=== PATIENT | female | born 1960 | race Caucasian/White ===

== ENCOUNTER 2025-04-30 07:54 | Outpatient (RCR) | payer BC, SELFPAY | END 2025-06-09 10:27 | disposition home or self-care (01) | LOC: PT 07:54 | PROVIDERS: PCP Orthopaedic Surgery; Visit Provider Family Medicine | DX: M17.11 Unilateral primary osteoarthritis, right knee (principal); M25.561 Pain in right knee | CPT/HCPCS: 97110; 97112; 97161; 97530 ==

== ENCOUNTER 2025-06-21 07:56 | Outpatient (OUT) | payer BC, SELFPAY ==
--- NOTE | 2025-06-21 08:05 | MM_ITS ---
Patient Name: NEGRO RICHEY MR#: [id number] : 1960 Exam Date: 06/21/2025 Ordering Doctor: DR CLARA COLUNGA . RADIOLOGY REPORT PROCEDURE: MM TOMOSYNTHESIS SCREENING BI COMPARISON: MG MAMM SCREEN JAMEL W CAD, 04/10/2019. MG MAMM SCREEN JAMEL W CAD, 04/08/2018. MG MAMM SCREEN JAMEL W CAD, 04/07/2017. MG MAMM JAMEL SCRN W CAD DIG, 02/14/2016. INDICATIONS: Screening Calculator Name NCI Breast Cancer Risk Assessment Tool 5 Year Breast Cancer Risk 1.30% Lifetime Breast Cancer Risk 5.00% Personal Breast Cancer No Personal Ovarian Cancer No Treatments None Family Cancers None LOCATION: [facility] BREAST COMPOSITION: There are scattered areas of fibroglandular density. FINDINGS: DIAGNOSTIC CATEGORY 1--NEGATIVE. RIGHT BREAST: No significant suspicious finding. LEFT BREAST: No significant suspicious finding. RECOMMENDATIONS: ROUTINE MAMMOGRAM AND CLINICAL EVALUATION IN 12 MONTHS. Dictated by: Seamus Kamara DO on 06/21/2025 at 15:22 Approved by: Seamus Kamara DO on 06/21/2025 at 15:27
== END 2025-06-21 07:57 | disposition home or self-care (01) ==
LOC: US 07:56
PROVIDERS: PCP Orthopaedic Surgery; Visit Provider Family Medicine
DX: Z00.00 Encounter for general adult medical examination without abnormal findings (principal); R60.9 Edema, unspecified; Z12.31 Encounter for screening mammogram for malignant neoplasm of breast
CPT/HCPCS: 77063; 77067; 93970

== ENCOUNTER 2025-06-26 07:58 | Outpatient (OUT) | payer BC, SELFPAY ==
--- OUTSIDE RECORDS SUMMARY | 2025-05-14 05:30 | XMS_ITS ---
Author Organization [facility] Address [address] [place] [address] Care Team Providers Care Product Advisor Name Role Phone TyroneOmid fung Primary Care Provider Abiel Lubin Unavailable [phone] Marilee Escamilla Unavailable [phone] REASON FOR VISIT 1st Post-Op Right TKA 04/26/25, S/p right TKA 04/26/2025 Medications Medication SIG (Take, Route, Frequency, Duration) Notes Start Date End Date Status furosemide Active aspirin Active QUEtiapine Active irbesartan Active amLODIPine Active metoprolol Active citalopram Active cloNIDine Active indomethacin Active Problems Problem Type SNOMED Code ICD Code Onset Dates Problem Status W/U Status Risk Notes Problem [id number] Aftercare following joint replacement surgery (Z47.1) Active confirmed Problem [id number] Presence of right artificial knee joint (Z96.651) Active confirmed Vital Signs Height 62 in 05/14/2025 Weight 205 lbs 05/14/2025 BMI 37.49 05/14/2025 Encounters Encounter Location Date Provider Diagnosis [facility] [address] [place] [address] 05/14/2025 Marileeleila Escamilla Aftercare following joint replacement surgery Z47.1 and Presence of right artificial knee joint Z96.651 Assessments Encounter Date Diagnosis (ICD Code) Assessment Notes Treatment Notes Treatment Clinical Notes Section Notes 05/14/2025 Aftercare following joint replacement surgery (ICD-10 - Z47.1) S/p right TKA 04/26/2025 05/14/2025 Presence of right artificial knee joint (ICD-10 - Z96.651) S/p right TKA 04/26/2025 05/14/2025 Other Discussed treatment options with patient. At this time patient is doing very well. Patient was encouraged that she has in a very good place with her mobility and range of motion. Patient was encouraged to continue working with physical therapy and doing home exercises for continued knee stretching and strengthening. They continue activity modification, rest, ice, elevation, and use of anti-inflammator ies as needed for pain control. Continue to progress activity as tolerated. Patient does not need any refills of pain medications. Continue Tylenol as needed for pain. Continue cane and walker as needed to assist with ambulation. Patient was in agreement with treatment plan. All questions and concerns were addressed at the time of the appointment. Will plan to see patient back in 6 weeks for repeat clinical and radiographic evaluation. Patient encouraged by the office any questions or concerns in the meantime. S/p right TKA 04/26/2025 Plan Of Treatment Treatment Notes Assessment Notes Other Discussed treatment options with patient. At this time patient is doing very well. Patient was encouraged that she has in a very good place with her mobility and range of motion. Patient was encouraged to continue working with physical therapy and doing home exercises for continued knee stretching and strengthening. They continue activity modification, rest, ice, elevation, and use of anti-inflammatories as needed for pain control. Continue to progress activity as tolerated. Patient does not need any refills of pain medications. Continue Tylenol as needed for pain. Continue cane and walker as needed to assist with ambulation. Patient was in agreement with treatment plan. All questions and concerns were addressed at the time of the appointment. Will plan to see patient back in 6 weeks for repeat clinical and radiographic evaluation. Patient encouraged by the office any questions or concerns in the meantime. Pending Test Test Name Order Date RSS: KNEE POST OP RIGHT 3V AP,[place], [place] [id number] 05/14/2025 Next Appt Details Follow Up: 6 Weeks, Reason: Provider Name:Abiel eBard, 10/29/2025 08:50:00 AM, [address] , [place] [address], [place], [address], Progress Notes * NEGRO RICHEY ADOB: [birth year] (65 yo F)Acc No.[id number]:05/14/2025 Progress Notes Patient: NEGRO RITTER Provider: Emelina Escamilla PA-C :1960 A ge:65 Y S ex:Female Date:05/14/2025 Address:[address] [place], [place] [id number] Pcp:Omid Mendez Subjective: * Chief Complaints: * 1 . 1st Post-Op Right TKA 04/26/25. 2. S/p right TKA 04/26/2025. * HPI: G eneral Info per Patient Report: Patient is a 65-year-old female who presents to the office for 2-week follow-up s/p right total knee arthroplasty completed on 04/26/2025. Patient states overall she is doing well. Pain is improving. Does note continued stiffness, but notes pain is overall very tolerable. Does note continued swelling in the knee and down her lower leg and at the foot by the end of the knee. No new falls or injuries. No numbness or tingling in her toes and feet. No redness, drainage, sores, dehiscence of incision site. Pain has woken her rarely but not regularly. Denies any fever or chills. Has been taking Tylenol with moderate relief. She is physical therapy is going great. Has been doing home exercises regularly. Ambulating with a walker most the time but has started to transition to a cane with physical therapy. * ROS: C onstitutional: Denies C hills. D enies F ever. * Medical History: * Surgical History: R ight total knee replacement 04/26/2025. * Medications: T aking cloNIDine , Taking citalopram , Taking indomethacin , Taking metoprolol , Taking QUEtiapine , Taking aspirin , Taking furosemide , Taking amLODIPine , Taking irbesartan , Medication List reviewed and reconciled with the patient Objective: * Vitals: H t: 62 in, Wt: 205 lbs, BMI:37.49. * Examination: G eneral examination: G eneral examination: Patient is a pleasant well-appearing 65-year-old female sitting comfortably in a chair. She is awake, alert and oriented x 3, and in no acute distress. Answering questions appropriately. Normal mood and affect. x-ray imaging studies:Dictated by Dr. Beard 3 views right knee obtained and reviewed. Radiographs demonstrate well aligned well-fixed right total knee arthroplasty. No evidence of hardware failure or loosening. No acute fracture or dislocation. Patella tracking centrally. X -ray Imaging Studies: S ee dictation by RSS. R ight Lower Extremity: W ell-healing midline incision without evidence of erythema, drainage, sores, dehiscence. Skin otherwise intact without evidence of erythema or ecchymosis. Moderate edema to knee. Mild edema down lower leg and into foot and ankle. Calf remain soft and compressible. No calf tenderness. No palpable cords. Negative Kosta. Mild diffuse tenderness through knee. Mild effusion. Knee range of motion 0 to 110 degrees. Mild discomfort with end range of motion flexion. He stable to varus/valgus stress. 5 out of 5 quad strength. Motor intact quad, hamstring, TA, GSC, EHL, FHL. Sensation intact light touch SPN, DPN, sural, saphenous, tibial nerve distribution. 2+ DP pulse. Toes warm and well-perfused. No calf pain. Negative Kosta. No hip or groin pain with hip range of motion. Assessment: * Assessment: 1. A ftercare following joint replacement surgery - Z47.1 (Primary) 2 . P resence of right artificial knee joint - Z96.651 S/p right TKA 04/26/2025. Plan: * Treatment: 2. P resence of right artificial knee joint I maging: RSS: KNEE POST OP RIGHT 3V AP,[place], [place] [id number] 3. O thers Notes: Discussed treatment options with patient. At this time patient is doing very well. Patient was encouraged that she has in a very good place with her mobility and range of motion. Patient was encouraged to continue working with physical therapy and doing home exercises for continued knee stretching and strengthening. They continue activity modification, rest, ice, elevation, and use of anti-inflammatories as needed for pain control. Continue to progress activity as tolerated. Patient does not need any refills of pain medications. Continue Tylenol as needed for pain. Continue cane and walker as needed to assist with ambulation. Patient was in agreement with treatment plan. All questions and concerns were addressed at the time of the appointment. Will plan to see patient back in 6 weeks for repeat clinical and radiographic evaluation. Patient encouraged by the office any questions or concerns in the meantime. * Preventive Medicine: MIPS Measures: C MS139 Fall Risk S creening: T wo or more falls without injury in the past year. # 155 - Falls Plan of Care P nataly of Care: D ocumented, T ype of fall plan of care: B alance, strength and gait training or instruction provided, Referral to exercise program for balance, strength or gait training, Referral to physical therapy\r\n. Well Visit: P reventive Screenings D EXA performed 0 02/02/2015. * Follow Up: 6 Weeks Forms: * Images: * Electronic signature of Lisasavana Escamilla PA-C on 06/26/2025 at 08:00 AM EDT Sign off status: Pending * Provider: Emelina Escamilla PA-C Date: 0 05/14/2025 Generated for Cyndi broussard/Nickolas/Jaraditting on: 0 06/26/2025 08:00 AM EDT History and Physical Notes * HPI (History of Present Illness) Category Sub-Category Detail Notes Category Not es General Info per Patient Report Patient is a 65-year -old female who presents to the office for 2-week follow-up s/p right total knee arthroplasty completed on 04/26/2025. Patient states overall she is doing well. Pain is improving. Does note continued stiffness, but notes pain is overall very tolerable. Does note continued swelling in the knee and down her lower leg and at the foot by the end of the knee. No new falls or injuries. No numbness or tingling in her toes and feet. No redness, drainage, sores, dehiscence of incision site. Pain has woken her rarely but not regularly. Denies any fever or chills. Has been taking Tylenol with moderate relief. She is physical therapy is going great. Has been doing home exercises regularly. Ambulating with a walker most the time but has started to transition to a cane with physical therapy. Examination Category Sub-Category Detail Notes Category Not es General examination General examination: Patient is a pleasant well-appearing 65-year-old female sitting comfortably in a chair. She is awake, alert and oriented x 3, and in no acute distress. Answering questions appropriately. Normal mood and affect. x-ray imaging studies:Dictated by Dr. Beard 3 views right knee obtained and reviewed. Radiographs demonstrate well aligned well-fixed right total knee arthroplasty. No evidence of hardware failure or loosening. No acute fracture or dislocation. Patella tracking centrally. X-ray Imaging Studies See di ctation by RSS Right Lower Extremity Well-h ealing midline incision without evidence of erythema, drainage, sores, dehiscence. Skin otherwise intact without evidence of erythema or ecchymosis. Moderate edema to knee. Mild edema down lower leg and into foot and ankle. Calf remain soft and compressible. No calf tenderness. No palpable cords. Negative Kosta. Mild diffuse tenderness through knee. Mild effusion. Knee range of motion 0 to 110 degrees. Mild discomfort with end range of motion flexion. He stable to varus/valgus stress. 5 out of 5 quad strength. Motor intact quad, hamstring, TA, GSC, EHL, FHL. Sensation intact light touch SPN, DPN, sural, saphenous, tibial nerve distribution. 2+ DP pulse. Toes warm and well-perfused. No calf pain. Negative Kosta. No hip or groin pain with hip range of motion.
--- OUTSIDE RECORDS SUMMARY | 2025-06-15 05:45 | XMS_ITS ---
Author Organization [facility] [place] Address [address] [place] [address] Care Team Providers Care Tour Consultant Name Role Phone Ariel Mendez Primary Care Provider Allergies Allergen (clinical drug ingredient) Drug/Non Drug Allergy documented on EMR Reaction Allergy Type Onset Date Status amoxicillin / clavulanate Augmentin vomiting/ diarrhea Drug Allergy Active REASON FOR VISIT Presents to office alone or c/o swollen ankles for years Medications Medication SIG (Take, Route, Frequency, Duration) Notes Start Date End Date Status cloNIDine HCl 0.2 MG TAKE 1 TABLET BY MO UTH TWICE A DAY; Duration: 90 Active Citalopram Hydrobromide 20 MG TAKE 1 TABLET BY MOUTH EVERY DAY FOR 30 DAYS; Duration: 90 Active Furosemide 20 MG TAKE 1 TABLET BY FARZAD TH EVERY DAY FOR 30 DAYS; Duration: 90 days Active Multivitamin - 1 tablet Orally Once a day Active Vitamin C 500 MG as directed Orally Active amLODIPine Besylate 10 MG TAKE 1 TABLET BY MOUTH EVERY DAY; Duration: 90 Active Aspirin 81 81 MG 1 tablet Orally Once a day Active QUEtiapine Fumarate 25 MG TAKE 1 TABLET BY MOUTH EVERY DAY AT NIGHT; Duration: 90 days Active Irbesartan 300 MG TAKE 1 TABLET BY FARZAD TH EVERY DAY; Duration: 90 Active Indomethacin 50 MG 1 capsule with food or milk Orally tid; Duration: 30 days 02/22/2025 Active Metoprolol Tartrate 25 MG 1 tablet with food Orally Twice a day; Duration: 30 days take along with the 50mg 01/17/2025 Active Metoprolol Tartrate 50 MG TAKE 1 TABLET BY MOUTH TWICE A DAY WITH FOOD; Duration: 90 days Active Social History Tobacco Use: Social History Observation Description Date Details (start date - stop date) Never Smoker NA - NA Tobacco Use/Smoking Question Answer Notes Patient is a nonsmoker AUDIT-C (Standard) Question Answer Notes Did you have a drink containing alcohol in the p ast year? No Points 0 Interpretation Negative Problems Problem Type SNOMED Code ICD Code Onset Dates Problem Status W/U Status Risk Notes Problem Edema ([id number]) Edema (R60.9) Active confirmed Vital Signs Weight 204.0 lbs 06/15/2025 Height 66 in 06/15/2025 Blood pressure systolic 126 mm Hg 06/15/20 25 Blood pressure diastolic 72 mm Hg 025 BMI 32.92 kg/m2 06/15/2025 Encounters Encounter Location Date Provider Diagnosis [facility] [address] [place] [address] 06/15/2025 Ariel Hoy Edema R60.9 and Well adult Z00.00 Assessments Encounter Date Diagnosis (ICD Code) Assessment Notes Treatment Notes Treatment Clinical Notes Section Notes 06/15/2025 Edema (ICD-10 - R60.9) 06/15/2025 Well adult (ICD-10 - Z00.00) Plan Of Treatment Pending Test Test Name Order Date VC VENOUS REFLUX JAMEL LMT 06/15/2025 MM screening mammo BI 06/15/2025 Progress Notes * Sharla RICHEY ADOB: [birth year] (65 yo F)Acc No.[id number]:06/15/2025 Progress Note Patient: Sharla RITTER Provider: Kathy Mendez ([facility])MD :1960 A ge:65 Y S ex:Female Date:06/15/2025 Address:[address] [place], [place] [id number] Check In:09:37 AM ESTCheck O ut:10:16 AM EST Subjective: * Chief Complaints: * P resents to office alone or c/o swollen ankles for years * HPI: G eneral: Swelling in legs =- usuaqly much better by am - no GAN no orthopnea -. * ROS: E ENT: hearing changes d enies. v isual changes d enies.?non-healing mouth sores d enies. s wollen glands or neck lumps d enies. h oarseness d enies. s ore throat d enies. d ifficulty swallowing d enies. n ose bleeds d enies. n aye congestion d enies. e ar ache d enies. e ar discharge?denies. r inging in ears d enies. l ight sensitivity d enies. e ye pain d enies. b lurring d enies. e ye irritation d enies. d ouble vision d enies.?vision loss d enies. G eneral/Constitutional: Sweats: D enies. F atigue d enies. S leep problems d enies. A norexia d enies. M alaise d enies. W eight loss d enies.?Fatigue or Weakness d enies. F ever or Chills d enies. C ardiovascular: Shortness of Breath w/lying flat d enies. L ightheadedness/dizziness d enies. C hest tightness/ heavy pressure d enies. S welling of legs, ankles, or feet d enies. W aking up with shortness of breath d enies. C hest pain denies. P alpitations d enies. W eight gain d enies. R espiratory: Chronic or frequent cough d enies. C oughing up blood?denies. D ifficulty breathing d enies. P roductive cough d enies. S noring?denies. S hortness of breath that awakens from sleep (PND) d enies. C hest pain d enies. S putum production d enies. W heezing d enies. M usculoskeletal: Joint pain d enies. J oint Fluid d enies. B ack pain d enies. K nee pain d enies. N sudheer pain d enies. J oint Stiffness d enies. M uscle cramps d enies. W eakness of muscles d enies. A rthritis d enies. M uscle aches d enies. P ain in shoulder(s) d enies. S wollen joints d enies. * Active Problem List G47.00 Insomnia Modified On:04/08/2023 Status:confirmed L30.9 Eczema Modified On:04/08/2023 Status:confirmed M17.9 Knee osteoarthritis Modified On:01/06/2024U Status:confirmed J30.2 Seasonal allergic rh initis Modified On:04/08/2023 Status:confirmed I10 Hypertension Modified On:04/08/2023U Status:confirmed F41.9 Anxiety Modified On:04/08/2023U Status:confirmed F32.A Depression Modified On:04/08/2023U Status:confirmed M13.861 Other specified arth ritis, right knee Modified On:01/13/2023 Status:confirmed M66.9 Tendon rupture, nont raumatic Modified On:09/19/2024 Status:confirmed M23.90 Internal derangement of knee Modified On:03/20/2025 Status:confirmed R60.9 Edema Modified On:06/15/2025 Status:confirmed * Medical History: * Surgical History: H ysterectomy S/P total knee arthroplasty, right 04/26/2025 * Hospitalization/Major Diagno stic Procedure: * Family History: F ather: , diagnosed with Unspecified heart disease. M other: , diagnosed with Unspecified heart disease. * Social History: T obacco Use: T obacco Use/Smoking P atient is a n onsmoker D rug/Alcohol: A ANDREW-C (Standard) D id you have a drink containing alcohol in the past year? N o P oints 0 I nterpretation N egative * Medications: T akingamLODIPine Besylate 10 MG Tablet TAKE 1 TABLET BY MOUTH EVERY DAY Aspirin 81(Aspirin) 81 MG Tablet Delayed Release 1 tablet Orally Once a day Citalopram Hydrobromide 20 MG Tablet TAKE 1 TABLET BY MOUTH EVERY DAY FOR 30 DAYS cloNIDine HCl 0.2 MG Tablet TAKE 1 TABLET BY MOUTH TWICE A DAY Furosemide 20 MG Tablet TAKE 1 TABLET BY MOUTH EVERY DAY FOR 30 DAYS Indomethacin 50 MG Capsule 1 capsule with food or milk Orally tid Irbesartan 300 MG Tablet TAKE 1 TABLET BY MOUTH EVERY DAY Metoprolol Tartrate 50 MG Tablet TAKE 1 TABLET BY MOUTH TWICE A DAY WITH FOOD Metoprolol Tartrate 25 MG Tablet 1 tablet with food Orally Twice a day take along with the 50mgMultivitamin(Multiple Vitamin) - Tablet 1 tablet Orally Once a day QUEtiapine Fumarate 25 MG Tablet TAKE 1 TABLET BY MOUTH EVERY DAY AT NIGHT Vitamin C 500 MG Capsule as directed Orally Taking amLODIPine Besylate 10 MG Tablet TAKE 1 TABLET BY MOUTH EVERY DAY Taking Aspirin 81(Aspirin) 81 MG Tablet Delayed Release 1 tablet Orally Once a day Taking Citalopram Hydrobromide 20 MG Tablet TAKE 1 TABLET BY MOUTH EVERY DAY FOR 30 DAYS Taking cloNIDine HCl 0.2 MG Tablet TAKE 1 TABLET BY MOUTH TWICE A DAY Taking Furosemide 20 MG Tablet TAKE 1 TABLET BY MOUTH EVERY DAY FOR 30 DAYS Taking Indomethacin 50 MG Capsule 1 capsule with food or milk Orally tid Taking Irbesartan 300 MG Tablet TAKE 1 TABLET BY MOUTH EVERY DAY Taking Metoprolol Tartrate 50 MG Tablet TAKE 1 TABLET BY MOUTH TWICE A DAY WITH FOOD Taking Metoprolol Tartrate 25 MG Tablet 1 tablet with food Orally Twice a day take along with the 50mgTaking Multivitamin(Multiple Vitamin) - Tablet 1 tablet Orally Once a day Taking QUEtiapine Fumarate 25 MG Tablet TAKE 1 TABLET BY MOUTH EVERY DAY AT NIGHT Taking Vitamin C 500 MG Capsule as directed Orally DiscontinuedGelsyn-3(Sodium Hyaluronate (Viscosup)) 16.8 MG/2ML Solution Prefilled Syringe 2 mL in right knee Intra-articular weekly Indomethacin 50 MG Capsule 1 capsule with food or milk Orally TID Medication List reviewed and reconciled with the patientDiscontinued Gelsyn-3(Sodium Hyaluronate (Viscosup)) 16.8 MG/2ML Solution Prefilled Syringe 2 mL in right knee Intra- articular weekly Discontinued Indomethacin 50 MG Capsule 1 capsule with food or milk Orally TID Medication List reviewed and reconciled with the patient * Allergies: A ugmentin: vomiting/ diarrhea - Allergyno[Allergies Verified] Objective: * Vitals: W t:204.0lbs, Ht: 66 in, BP:126/72mm Hg, BMI:32.92Index, Ht-cm: 167.64 cm, Wt-k.53 kg. * Examination: P hysical Exam: GENERAL: w ell developed, well nourished, in no acute distress. HEAD: n ormocephalic/atraumatic. EYES: p upils equal, round and reactive to light, conjunctivae and sclerae normal. EARS: n o deformity or lesion of external ear, canals and TM appear normal bilaterally, TM's intact, not inflamed with normal light reflex, hearing grossly normal to conversational speech. NOSE: n o deformity, discharge, inflammation, or lesions.? MOUTH: m ucous membranes moist, normal oropharynx and posterior pharynx without lesions or exudates, tongue normal, dentition normal. NECK: n sudheer supple, no masses or palpable cervical nodes, trachea midline, thyroid without nodules, masses, tenderness, or enlargement. CHEST: n o chest wall deformity, no chest wall tenderness.? LUNGS: n ormal respiratory effort and clear to auscultation, no wheezes, rales, or rhonchi, good air exchange. CARDIO: r egular rate and rhythm, normal S1 and S2, nor murmur, rub, or gallop. PULSES: n ormal capillary refill. ABDOMEN: s oft, non-distended, non-tender, no masses. MUSCULOSKELETAL: n o deformity or scoliosis noted, normal range of motion, joints normal, no erythema, edema, effusion, or ecchymosis. EXTREMITY: n o clubbing, cyanosis, edema, or deformity with normal ROM in both upper and lower bilateral extremities. NEUROLOGIC: g rossly normal. SKIN: n o rashes, ulcerations, or suspicious lesions. LYMPH NODES: n o cervical adenopathy, nodes normal. MENTAL STATUS: a lert and oriented x3, normal mood and affect. Assessment: * Assessment: 1. E melody - R60.9 (Primary) 2 . W [facility] adult - Z00.00 Plan: * Treatment: 2. W [facility] adult I maging: MM screening mammo BI * Procedure Codes: * Preventive Medicine: Screenings/Counseling: B FL ACTION PLAN Above Normal BMI Follow-up D ietary management education, guidance, and counseling See treatment section of progress note for complete details of management plan. F ALL RISK SCREENING Fall Risk Assessment: N o falls in the past year * * Sign off status: Completed Visit Status: C HK (Check Out) true * Provider: Kathy Mendez ([facility])MD Date: 0 06/15/2025 Generated for Printi ng/Faxing/eTransmitting on: 0 06/26/2025 08:01 AM EDT History and Physical Notes * HPI (History of Present Illness) Category Sub-Category Detail Notes Category Not es General Swelling in legs =- usuaqly much better by am - no GAN no orthopnea - Examination Category Sub-Category Detail Notes Category Not es Physical Exam GENERAL: well developed, well nourished, in no acute distress HEAD: normocephalic/atraum atic EYES: pupils equal, round and reactive to light, conjunctivae and sclerae normal EARS: no deformity or lesi on of external ear, canals and TM appear normal bilaterally, TM's intact, not inflamed with normal light reflex, hearing grossly normal to conversational speech NOSE: no deformity, discha rge, inflammation, or lesions MOUTH: mucous membranes [place] st, normal oropharynx and posterior pharynx without lesions or exudates, tongue normal, dentition normal NECK: neck supple, no mass es or palpable cervical nodes, trachea midline, thyroid without nodules, masses, tenderness, or enlargement CHEST: no chest wall deform ity, no chest wall tenderness LUNGS: normal respiratory e ffort and clear to auscultation, no wheezes, rales, or rhonchi, good air exchange CARDIO: regular rate and rhy thm, normal S1 and S2, nor murmur, rub, or gallop PULSES: normal capillary ref ill ABDOMEN: soft, non-distended, non-tender, no masses RECTAL: MUSCULOSKELETAL: no deformity or scol iosis noted, normal range of motion, joints normal, no erythema, edema, effusion, or ecchymosis EXTREMITY: no clubbing, cyanosi s, edema, or deformity with normal ROM in both upper and lower bilateral extremities NEUROLOGIC: grossly normal SKIN: no rashes, ulceratio ns, or suspicious lesions LYMPH NODES: no cervical adenopat hy, nodes normal MENTAL STATUS: alert and oriented x 3, normal mood and affect
--- OUTSIDE RECORDS SUMMARY | 2025-06-21 09:41 | XMS_ITS ---
Author Organization The [facility] in [place] Address [address] [place] [address] Care Team Providers Care Director Of Enterprise Strategy Name Role Phone Ariel Mendez Primary Care Provider REASON FOR VISIT request labs Encounters Encounter Location Date Provider Diagnosis [facility] [address] [place] [address] 06/21/2025 Ariel Mendez Knee osteoarthritis M17.9 ; Hypertension I10 ; Edema R60.9 ; Well adult Z00.00 ; Hyperlipidemia E78.5 ; Elevated fasting glucose R73.01 and Encounter for medication management Z79.899 Assessments Encounter Date Diagnosis (ICD Code) Assessment Notes Treatment Notes Treatment Clinical Notes Section Notes 06/21/2025 Knee osteoarthritis (ICD-10 - M17.9) 06/21/2025 Hypertension (ICD-10 - I10) 06/21/2025 Edema (ICD-10 - R60.9) 06/21/2025 Well adult (ICD-10 - Z00.00) 06/21/2025 Hyperlipidemia (ICD-10 - E78.5) 06/21/2025 Elevated fasting glucose (ICD-10 - R73.01) 06/21/2025 Encounter for medication management (ICD-10 - Z79.899) Plan Of Treatment Pending Test Test Name Order Date RHEUMATOID PANEL 06/21/2025 FECAL OCCULT BLOOD 06/21/2025 CMP - Comprehensive Metabolic Panel 06/11 CBC W/AUTO DIFF 06/21/2025 GLYCOHEMOGLOBIN A1C 06/21/2025 LIPID PROFILE 06/21/2025 THYROID PANEL (T4/TSH/FREE T3) Progress Notes * Sharla RICHEY ADOB: [birth year] (65 yo F)Acc No.[id number]:06/21/2025 Patient: Sharla RITTER :1960 A ge:65 Y S ex:Female Address:[address] [place] [id number] Subjective: * Chief Complaints: * R equest labs * Medical History: * Surgical History: * Hospitalization/Major Diagno stic Procedure: * Medications: Objective: * Vitals: * Physical Examination: Assessment: * Assessment: 1. K nee osteoarthritis - M17.9 2 . H ypertension - I10 3 .?Edema - R60.9 4 . W ell adult - Z00.00 5 . H yperlipidemia - E78.5 6 . E levated fasting glucose - R73.01 7 . E ncounter for medication management - Z79.890 Plan: * Treatment: 2. H ypertension L AB: RHEUMATOID PANEL L AB: FECAL OCCULT BLOOD L AB: CMP - Comprehensive Metabolic Panel L AB: CBC W/AUTO DIFF L AB: GLYCOHEMOGLOBIN A1C L AB: LIPID PROFILE L AB: THYROID PANEL (T4/TSH/FREE T3) 3. E melody L AB: RHEUMATOID PANEL L AB: FECAL OCCULT BLOOD L AB: CMP - Comprehensive Metabolic Panel L AB: CBC W/AUTO DIFF L AB: GLYCOHEMOGLOBIN A1C L AB: LIPID PROFILE L AB: THYROID PANEL (T4/TSH/FREE T3) 4. W ell adult L AB: RHEUMATOID PANEL L AB: FECAL OCCULT BLOOD L AB: CMP - Comprehensive Metabolic Panel L AB: CBC W/AUTO DIFF L AB: GLYCOHEMOGLOBIN A1C L AB: LIPID PROFILE L AB: THYROID PANEL (T4/TSH/FREE T3) 5. H yperlipidemia L AB: RHEUMATOID PANEL L AB: FECAL OCCULT BLOOD L AB: CMP - Comprehensive Metabolic Panel L AB: CBC W/AUTO DIFF L AB: GLYCOHEMOGLOBIN A1C L AB: LIPID PROFILE L AB: THYROID PANEL (T4/TSH/FREE T3) 6. E levated fasting glucose L AB: RHEUMATOID PANEL L AB: FECAL OCCULT BLOOD L AB: CMP - Comprehensive Metabolic Panel L AB: CBC W/AUTO DIFF L AB: GLYCOHEMOGLOBIN A1C L AB: LIPID PROFILE L AB: THYROID PANEL (T4/TSH/FREE T3) 7. E ncounter for medication management L AB: RHEUMATOID PANEL L AB: FECAL OCCULT BLOOD L AB: CMP - Comprehensive Metabolic Panel L AB: CBC W/AUTO DIFF L AB: GLYCOHEMOGLOBIN A1C L AB: LIPID PROFILE L AB: THYROID PANEL (T4/TSH/FREE T3) * Procedure Codes: * true * Date: Generated for Cyndi broussard/Nickolas/eTransmitting on: 0 06/26/2025 08:00 AM EDT
--- OUTSIDE RECORDS SUMMARY | 2025-06-26 08:01 | XMS_ITS | Patient Health Record ---
Author Organization The [facility] in [place] Address [address] [place] [address] Care Team Providers Care Gluing Machine Operator Automatic Name Role Phone Vanessa Ariel Primary Care Provider Allergies Allergen (clinical drug ingredient) Drug/Non Drug Allergy documented on EMR Reaction Allergy Type Onset Date Status amoxicillin / clavulanate Augmentin vomiting/ diarrhea Drug Allergy Active Results Component Value Reference Range Notes MM tomosynthesis screening B I Reviewed date:06/21/2025 07:43:29 PM Interpretation: Performing Lab: Notes/Report: Source Facility: [place] [address] Mammography Report Signed Patient: SHARLA RICHEY MR#: [id number] : 1960 Acct:[id number] Age/Sex: 65 / F ADM Date: 06/21/25 Loc: US Attending Dr: Clara Colunga M.D. Ordering Physician: Clara Colunga M.D. Results: Date of Service: 06/21/25 Follow Up: Procedure(s): MM tomosynthesis screening BI Accession Number(s): [id number] cc: Clara Colunga M.D.; ANDREA MONTEJO Patient Name: SHARLA RICHEY MR#: [id number] : 1960 Exam Date: 06/21/2025 Ordering Doctor: DR CLARA COLUNGA . RADIOLOGY REPORT PROCEDURE: MM TOMOSYNTHESIS SCREENING BI COMPARISON: MG MAMM SCREEN JAMEL W CAD, 04/10/2019. MG MAMM SCREEN JAMEL W CAD, 04/08/2018. MG MAMM SCREEN JAMEL W CAD, 04/07/2017. MG MAMM JAMEL SCRN W CAD DIG, 02/14/2016. INDICATIONS: Screening Calculator Name NCI Breast Cancer Risk Assessment Tool 5 Year Breast Cancer Risk 1.30% Lifetime Breast Cancer Risk 5.00% Personal Breast Cancer No Personal Ovarian Cancer No Treatments None Family Cancers None LOCATION: [facility] BREAST COMPOSITION: There are scattered areas of fibroglandular density. FINDINGS: DIAGNOSTIC CATEGORY 1--NEGATIVE. RIGHT BREAST: No significant suspicious finding. LEFT BREAST: No significant suspicious finding. RECOMMENDATIONS: ROUTINE MAMMOGRAM AND CLINICAL EVALUATION IN 12 MONTHS. Dictated by: Seamus Kamara DO on 06/21/2025 at 15:22 Approved by: Seamus Kamara DO on 06/21/2025 at 15:27 Dictated By: Seamus Kamara M.D. Signed By: 06/21/25 1528 DD/ 1527 TD/TT: Logistics Vice President: Reason For Referral Diagnosis 1 Knee osteoarthritis (M17.9) Referral Organization [facility] Medicine Referring Provider First Name Ariel Referring Provider Last Name Tyroneantonieta Referring Provider Speciality Family Med konstantin Referred Provider To Orozco Referred Provider Specialty Orthopedic S urgery Referral Priority Routine Medications Medication SIG (Take, Route, Frequency, Duration) Notes Start Date End Date Status cloNIDine HCl 0.2 MG TAKE 1 TABLET BY MO [facility] TWICE A DAY; Duration: 90 Active Irbesartan 300 MG TAKE 1 TABLET BY FARZAD TH EVERY DAY; Duration: 90 Active Indomethacin 50 MG 1 capsule with food or milk Orally tid; Duration: 30 days 02/22/2025 Active Multivitamin - 1 tablet Orally Once a day Active Metoprolol Tartrate 25 MG 1 tablet with food Orally Twice a day; Duration: 30 days take along with the 50mg 01/17/2025 Active Vitamin C 500 MG as directed Orally Active Metoprolol Tartrate 50 MG TAKE 1 TABLET BY MOUTH TWICE A DAY WITH FOOD; Duration: 90 days Active Aspirin 81 81 MG 1 tablet Orally Once a day Active QUEtiapine Fumarate 25 MG TAKE 1 TABLET BY MOUTH EVERY DAY AT NIGHT; Duration: 90 days Active amLODIPine Besylate 10 MG TAKE 1 TABLET BY MOUTH EVERY DAY; Duration: 90 Active Citalopram Hydrobromide 20 MG TAKE 1 TABLET BY MOUTH EVERY DAY FOR 30 DAYS; Duration: 90 Active Furosemide 20 MG TAKE 1 TABLET BY FARZAD TH EVERY DAY FOR 30 DAYS; Duration: 90 days Active Immunizations Vaccine Route Administration Date Status Comme nts Flu, Flucelvax (79682) 6 mos and older, single-dose syringe (5348-8340) Unknown 07/21/2024 Administered Social History Tobacco Use: Social History Observation Description Date Details (start date - stop date) Never Smoker NA - NA Tobacco Use/Smoking Question Answer Notes Patient is a nonsmoker Alcohol Screen (Audit-C) Question Answer Notes Did you have a drink containing alcohol in the p ast year? No Points 0 Interpretation Negative AUDIT-C (Standard) Question Answer Notes Did you have a drink containing alcohol in the p ast year? No Points 0 Interpretation Negative Problems Problem Type SNOMED Code ICD Code Onset Dates Problem Status W/U Status Risk Notes Problem Arthritis of right knee (7423274660559157 ) Other specified arthritis, right knee (M13.861) Active confirmed Problem Hypertension (11807153) Hypertension (I10) Active confirmed Problem Anxiety (28001215) Anxiety (F41.9) Active confirmed Problem Edema (25169738) Edema (R60.9) Active confirmed Problem Insomnia (882695244) Insomnia (G47.00) Active confirmed Problem Eczema (19574069) Eczema (L30.9) Active confirm ed Problem Osteoarthritis of knee (486931472) Knee osteoarthritis (M17.9) Active confirmed Problem Seasonal allergic rhinitis (833105319) Seasonal allergic rhinitis (J30.2) Active confirmed Problem Non-traumatic tendon rupture (042581425) Tendon rupture, nontraumatic (M66.9) Active confirmed Problem Internal derangement of knee (38335442) Internal derangement of knee (M23.90) Active confirmed Problem Depression (573813527) Depression (F32.A) Active confirmed Vital Signs Blood pressure diastolic 72 mm Hg 06/15/2025 Height 66 in 06/15/2025 Blood pressure systolic 126 mm Hg 06/15/2025 Weight 204.0 lbs 06/15/2025 BMI 32.92 kg/m2 06/15/2025 Encounters Encounter Location Date Provider Diagnosis [facility] [address] [place] [address] 08/17/2024 Ariel Hoy Osteoarthritis of ri ght knee M17.11 ; Hypertension I10 ; Anxiety F41.9 and Knee osteoarthritis M17.9 [facility] [address] [place] [place] [address] 09/19/2024 Ariel Hoy Tendon rupture, nontraumatic M66.9 [facility] [address] [place] [place] [address] 01/25/2025 Ariel Hoy Osteoarthritis of ri ght knee M17.11 and Anxiety F41.9 [facility] [address] [place] [place] [address] 02/21/2025 Ariel Hoy Knee osteoarthritis M17.9 [facility] [address] [place] [address] 03/20/2025 Ariel Hoy Derangement of right knee M23.91 [facility] [address] [place] [place] [address] 04/19/2025 Ariel Hoy Hypertension I10 and Knee osteoarthritis M17.9 [facility] [address] [place] [place] [address] 01/15/2025 Ariel Hoy [facility] [address] [place] [place] [address] 01/17/2025 Ariel Hoy [facility] [address] [place] [place] [address] 02/05/2025 Ariel Hoy Knee osteoarthritis M17.9 [facility] [address] [place] [place] [address] 02/14/2025 Ariel Hoy [facility] [address] [place] [place] [address] 02/21/2025 Ariel Hoy [facility] [address] [place] [place] [address] 02/22/2025 Ariel Hoy [facility] [address] [place] [place] [address] 03/08/2025 Ariel Hoy Knee osteoarthritis M17.9 [facility] [address] [place] [place] [address] 03/20/2025 Ariel Colunga [facility] [address] [place] [address] 06/15/2025 Ariel Colunga Edema R60.9 and Well adult Z00.00 [facility] [address] [place] [address] 06/21/2025 Ariel Colunga Knee osteoarthritis M17.9 ; Hypertension I10 ; Edema R60.9 ; Well adult Z00.00 ; Hyperlipidemia E78.5 ; Elevated fasting glucose R73.01 and Encounter for medication management Z79.899 [facility] [address] [place] [address] 06/21/2025 Ariel Colunga [facility] [address] [place] [address] 06/25/2025 Ariel Colunga Assessments Encounter Date Diagnosis (ICD Code) Assessment Notes Treatment Notes Treatment Clinical Notes Section Notes 08/17/2024 Osteoarthritis of right knee (ICD-10 - M17.11) 09/19/2024 Tendon rupture, nontraumatic (ICD-10 - M66.9) 01/25/2025 Anxiety (ICD-10 - F41.9) 01/25/2025 Osteoarthritis of right knee (ICD-10 - M17.11) 02/21/2025 Knee osteoarthritis (ICD-10 - M17.9) Shazia carlson did ok iwht steroid but didnt last - needs synvisc 1 03/20/2025 Derangement of right knee (ICD-10 - M23.91) 04/19/2025 Hypertension (ICD-10 - I10) Cleared for OR 04/19/2025 Knee osteoarthritis (ICD-10 - M17.9) 06/15/2025 Edema (ICD-10 - R60.9) 06/15/2025 Well adult (ICD-10 - Z00.00) 02/05/2025 Knee osteoarthritis (ICD-10 - M17.9) 03/08/2025 Knee osteoarthritis (ICD-10 - M17.9) 08/17/2024 Hypertension (ICD-10 - I10) 06/21/2025 Knee osteoarthritis (ICD-10 - M17.9) 08/17/2024 Anxiety (ICD-10 - F41.9) 06/21/2025 Hypertension (ICD-10 - I10) 06/21/2025 Edema (ICD-10 - R60.9) 08/17/2024 Knee osteoarthritis (ICD-10 - M17.9) 06/21/2025 Well adult (ICD-10 - Z00.00) 06/21/2025 Hyperlipidemia (ICD-10 - E78.5) 06/21/2025 Elevated fasting glucose (ICD-10 - R73.01) 06/21/2025 Encounter for medication management (ICD-10 - Z79.899) Plan Of Treatment Pending Test Test Name Order Date RHEUMATOID PANEL 06/21/2025 FECAL OCCULT BLOOD 06/21/2025 CMP - Comprehensive Metabolic Panel 06/11 CBC W/AUTO DIFF 06/21/2025 GLYCOHEMOGLOBIN A1C 06/21/2025 LIPID PROFILE 06/21/2025 VC VENOUS REFLUX JAMEL LMT 06/15/2025 THYROID PANEL (T4/TSH/FREE T3) 5 MM screening mammo BI 06/15/2025 Insurance Providers Payer Name Payer Address Payer Phone Subscriber Number Group Number Insured Name Patient Relationship to Insured Coverage Start Date Coverage End Date [employer] [address] [place] [address] [id number] Sharla Richey Self - patient is the insured Medications Administered Medication Instructions Date of Administration Dosage Notes Kenalog-40 04/09/2023 80 mg 80mg with 1 cc lidocaine Kenalog-40 09/06/2023 80 mg 1cc of lidocai ne Kenalog-40 01/06/2024 80 mg 80mg and 1 cc lidocaine Ketorolac Tromethamine 02/21/2025 60 mg Lidocaine HCl 01/25/2025 1 mL Triamcinolone 40 mg/ml 08/17/2024 80 mg wi th 1 cc lidocaine Triamcinolone 40 mg/ml 01/25/2025 80 mg Triamcinolone 40 mg/ml 02/21/2025 120 mg Medical (General) History Medical History History ICD Code Knee osteoarthritis M17.9 Cellulitis L03.90 Shingles B02.9 Anxiety F41.9 Insomnia G47.00 Mastoiditis H70.90 Aphthous ulcer K12.0 Eczema L30.9 Seasonal allergic rhinitis J30.2 Hypertension I10 Depression F32.A Surgical History Surgery Date(Month/Year) Hysterectomy S/P total knee arthroplasty, right 2024
--- OUTSIDE RECORDS SUMMARY | 2025-06-26 08:01 | XMS_ITS | Clinical Summary ---
Author Organization [facility] Address [address] [facility] [facility], [address] [place] [address] Care Team Providers Care Host Coordinator Name Role Phone Omid Mendez MD Primary Care Provider [phone] Allergies No known active allergies Medications cloNIDine (CATAPRES) 0.2 MG tablet Take 1 tablet by mouth 2 times daily Active citalopram (CELEXA) 20 MG tablet Take 1 tablet by mouth daily Active indomethacin (INDOCIN) 50 MG capsule Take 1 capsule by mouth 3 times daily (with meals) Active QUEtiapine (SEROQUEL) 25 MG tablet Take 1 tablet by mouth nightly Pt takes half a tab Active furosemide (LASIX) 20 MG tablet Take 1 tablet by mouth daily Active amLODIPine (NORVASC) 10 MG tablet Take 1 tablet by mouth daily Active irbesartan (AVAPRO) 300 MG tablet Take 1 tablet by mouth daily Active metoprolol tartrate (LOPRESSOR) 50 MG tablet Take 1 tablet by mouth 2 times daily Active metoprolol tartrate (LOPRESSOR) 25 MG tablet Take 1 tablet by mouth 2 times daily Active Multiple Vitamins-Minera ls (MULTIPLE VITAMINS/WOMENS ) TABS Take 1 tablet by mouth daily Active vitamin C (ASCORBIC ACID) 500 MG tablet Take 1 tablet by mouth daily Active pregabalin (LYRICA) 75 MG capsuleIndicati ons:S/P total knee arthroplasty, right Take 1 capsule by mouth 2 times daily as needed (breakthroug h pain) for up to 14 days. Max Daily Amount: 150 mg 28 capsule 04/26/2025 Active aspirin (LOC ASPIRIN) 325 MG tablet Take 1 tablet by mouth daily 30 tablet 04/26/2025 Active Active Problems Problem Noted Date Diagnosed Date S/P total knee arthroplasty, right 04/26/2025 Hypertension Encounters Date Type Department Care Team Description 05/19/2025 Refill [facility] Physician Services [address] [place], [place] [id number] Marilee Escamilla PA Med Change Request 04/26/2025 1:20 PM EDT - 04/26/2025 3:50 PM EDT Surgery [facility] OR [address] [place] [id number] Abiel Beard MD KNEE TOTAL ARTHROPLASTY 04/26/2025 1:14 PM EDT Anesthesia Event [facility] [address] [place], [place] [phone] Seamus Auguste APRN - SAULO 04/26/2025 11:19 AM EDT - 04/27/2025 12:15 PM EDT Hospital Encounter [facility] [address] [place], [place] [id number] Abiel Beard MD S/P total knee arthroplasty, right (Primary Dx) Discharge Disposition: Home or Self Care 04/26/2025 Travel 04/05/2025 10:23 AM EDT - 04/07/2025 11:59 PM EDT Hospital Encounter [address] [address] Abiel Beard MD Discharge Disposition: Home or Self Care 04/05/2025 9:00 AM EDT - 04/09/2025 11:59 PM EDT Hospital Encounter [facility] PRE ADMIT [address] [place] [id number] Abiel Beard MD Discharge Disposition: Home or Self Care from Last 3 Months Social History Tobacco Use Types Packs/Day Years Used Date Smoking Tobacco: Never Smokeless Tobacco: Never Tobacco Cessation:Counseling Given: Not Answered Alcohol Use Standard Drinks/Week Comments Never 0 (1 standard drink = 0.6 oz pur e alcohol) [facility] Utilities Answer Date Recorded In the past 12 months has [employer] electric, gas, oil, or water company threatened to shut off services in your home? No 04/26/2025 Hunger Vital Sign Answer Date Recorded Within the past 12 months, y ou worried that your food would run out before you got the money to buy more. Never true 04/26/20 25 Within the past 12 months, t he food you bought just didn't last and you didn't have money to get more. Never true 04/26/2025 PRAPARE - Transportation Answer Date Re corded In the past 12 months, has l ack of transportation kept you from medical appointments or from getting medications? No 04/10 In the past 12 months, has l ack of transportation kept you from meetings, work, or from getting things needed for daily living? No 04/26/2025 Housing Stability Vital Sign Answer Ronnie e Recorded In the last 12 months, was t here a time when you were not able to pay the mortgage or rent on time? No 04/26/2025 In the past 12 months, how m any times have you moved where you were living? 0 04/26/2025 At any time in the past 12 m [facility], were you homeless or living in a assisted (including now)? No 04/26/2025 Food Insecurity Answer Date Recorded Within the past 12 months, y ou worried that your food would run out before you got the money to buy more. 1 04/26/2025 Within the past 12 months, t he food you bought just didn't last and you didn't have money to get more. 1 04/26/2025 Interpersonal Safety Domain Source: IP Abuse Scr eening Answer Date Recorded Physical abuse Denies 04/26/2025 Verbal abuse Denies 04/26/2025 Emotional abuse Denies 04/26/2025 Financial abuse Denies 04/26/2025 Sexual abuse Denies 04/26/2025 Comments No Sex and Gender Information Value Date Recorded Sex Assigned at Not on file Legal Sex Female 11:44 AM EDT Gender Identity Not on file Sexual Orientation Not on file Last Filed Vital Signs Vital Sign Reading Time Taken Comments Blood Pressure 141/61 04/27/2025 7:49 AM EDT Pulse 52 04/27/2025 7:49 AM EDT Temperature 36.7 C (98 F) 04/27/2025 7:49 AM EDT Respiratory Rate 18 04/27/2025 7:49 AM EDT Oxygen Saturation 99% 04/27/2025 7:49 AM EDT Inhaled Oxygen Concentration - - Weight 90.4 kg (199 lb 6.4 oz) 04/26/2025 11:30 AM EDT Height 160 cm (5' 3 ) 04/26/2025 11:30 AM EDT Body Mass Index 35.32 04/26/2025 11:30 AM EDT Plan of Treatment Health Maintenance Due Date Last Done Comments Depression Screen 1972 HIV screen 02/02/1975 Hepatitis C screen 02/02/1978 DTaP/Tdap/Td vaccine (1 - Tdap) 02/02/1979 Diabetes screen 02/02/1995 Breast cancer screen 2000 Lipids 2000 Colonoscopy 02/02/2005 Colorectal Cancer Screen 02/02/2005 FIT/FOBT: Average risk 02/02/2005 Fecal-DNA (Cologuard): Average risk 02/02/2005 Sigmoidoscopy/CT colonography 02/02/2005 Pneumococcal 50+ years Vaccine (1 of 1 - PCV) 02/02/2010 Shingles vaccine (1 of 2) 02/02/2010 DEXA (modify frequency per FRAX score) 02/02/2015 Flu vaccine (#1) 05/11/2025 07/21/2024, 04/2023, 07/24/2022, Additional history exists COVID-19 Vaccine (2024- season) 2025 10/06/2021, 07/24/2021, 02/01/2021, Additional history exists Respiratory Syncytial Virus (RSV) or age 60 yrs+ (1 - 1-dose 75+ series) 02/02/2035 GFR test (Diabetes, CKD 3-4, OR last GFR 15-59) Discontinued 04/27/2025, 04/05/2025 Hepatitis A vaccine Aged Out No longe r eligible based on patient's age to complete this topic Hepatitis B vaccine Aged Out No longe r eligible based on patient's age to complete this topic Hib vaccine Aged Out No longer eligi ble based on patient's age to complete this topic Meningococcal (ACWY) vaccine Aged Out No longer eligible based on patient's age to complete this topic Meningococcal B vaccine Aged Out No l onger eligible based on patient's age to complete this topic Polio vaccine Aged Out No longer elig ible based on patient's age to complete this topic Medical Devices Implanted Type Area Manager Tax Device Identifier Shelf Expiration Date Model / Serial / Lot Cement Bne 40gm Hi Visc Radpq For Rev Surg - [id number] Implanted:Qty: 1 on 04/26/2025 by Abiel Beard MD at [facility] Right: Knee [employer]- 07/10/2027 [id number] / / [id number] Cement Bne 40gm Hi Visc Radpq For Rev Surg - [id number] Implanted:Qty: 1 on 04/26/2025 by Abiel Beard MD at [facility] Right: Knee [employer]- 07/10/2027 [id number] / / [id number] Psn Tib Stm 5 Deg Sz F R - [id number] Implanted:Qty: 1 on 04/26/2025 by Abiel Beard MD at [facility] Right: Knee [employer]- 09/16/2034 [id number] 2 / [id number] Component Pat [id number] Thk9mm Std Knee Vivac[employer]-E Ben Persona - [id number] Implanted:Qty: 1 on 04/26/2025 by Abiel Beard MD at [facility] Right: Knee [employer]- 12/05/2029 [id number] / [id number] Component Fem Sz 7 Std R Knee Co Chrom Ben Cruce Ret Cor - [id number] Implanted:Qty: 1 on 04/26/2025 by Abiel Beard MD at [facility] Right: Knee [employer]- 01/16/2035 [id number] 2 / [id number] Psn Mc Ve Asf R 13mm 6-7/Ef - [id number] Implanted:Qty: 1 on 04/26/2025 by Abiel Beard MD at [facility] Right: Knee [employer]- 07/20/2027 [id number] Procedures Procedure Name Priority Date/Time Associated Diagnosis Comments HEMOGLOBIN AND HEMATOCRIT [employer] Label Print 04/27/2025 5:30 AM EDT BASIC METABOLIC PANEL [employer] Label Print 04/27/2025 5:30 AM EDT XR KNEE RIGHT (1-2 VIEWS) Routine 04/26/2025 3:46 PM EDT ANESTHESIA SPINAL BLOCK Routine 04/26/2025 1:16 PM EDT ME ARTHRP KNE CONDYLE&PLATU MEDIAL&LAT COMPARTMENTS 04/26/2025 1:15 PM EDT Right knee pain, unspecified chronicity Special Needs Assist- Julia and Yonatan [email or web address] hour observationRegional/spinalNeeds preop medical clearance - Renata notified 04/17 start time 1330Block per anesthesia HC PERIPHERAL BLOCK - FEMORAL SINGLE OR SAPHENOUS W/IMG GDN Routine 04/26/2025 12:53 PM EDT XR CHEST (2 VW) Routine 04/05/2025 10:26 AM EDT EKG 12-LEAD Routine 04/05/2025 10:00 AM EDT TYPE AND SCREEN Routine 04/05/2025 9:51 AM EDT MICROSCOPIC URINALYSIS Routine 04/05/2025 9:51 AM EDT URINALYSIS WITH REFLEX TO CULTURE Routine 04/05/2025 9:51 AM EDT MRSA DNA PROBE, NASAL Routine 04/05/2025 9:51 AM EDT APTT Routine 04/05/2025 9:50 AM EDT PROTIME-INR Routine 04/05/2025 9:50 AM EDT COMPREHENSIVE METABOLIC PANEL Routine 04/05/2025 9:50 AM EDT CBC WITH AUTO DIFFERENTIAL Routine 04/05/2025 9:50 AM EDT from Last 3 Months Results * (ABNORMAL) Hemoglobin and Hematocrit (04/27/2025 5:30 AM EDT) Hemoglobin 10.8(L) 11.9 - 15.1 g/dL 04/27/2025 5:30 AM EDT [facility] Hematocrit 31.6(L) 36.3 - 47.1 % 04/27/2025 5:30 AM EDT [facility] Blood BLOOD SPECIMEN / Unknown 04/27/2025 5:30 AM EDT 04/27/2025 5:51 AM EDT us Marilee GARZA HEMATOLOGY ORDERABLES Final Resu lt [facility] [address] [phone] * (ABNORMAL) Basic Metabolic Panel (04/27/2025 5:30 AM EDT) Sodium 135(L) 136 - 145 mmol/L 04/27/2025 5:30 AM EDT [facility] Potassium 4.2 3.7 - 5.3 mmol/L 04/27/2025 5:30 AM EDT [facility] Chloride 106 98 - 107 mmol/L 04/27/2025 5:30 AM EDT [facility] CO2 20 20 - 31 mmol/L 04/27/2025 5:30 AM EDT [facility] Anion Gap 9 9 - 16 mmol/L 04/27/2025 5:30 AM EDT [facility] Glucose 123(H) 74 - 99 mg/dL 04/27/2025 5:30 AM EDT [facility] BUN 23 8 - 23 mg/dL 04/27/2025 5:30 AM EDT [facility] Creatinine 1.0(H) 0.50 - 0.90 mg/dL 04/27/2025 5:30 AM EDT [facility] Mark Cordont Rate 62 >60 mL/min/1.7 3m2 04/27/2025 5:30 AM EDT [facility] Comment: These results are not intended for use in patients <18 years of age. eGFR results are calculated without a race factor using the 2020 CKD-EPI equation. Careful clinical correlation is recommended, particularly when comparing to results calculated using previous equations. The CKD-EPI equation is less accurate in patients with extremes of muscle mass, extra-renal metabolism of creatine, excessive creatine ingestion, or following therapy that affects renal tubular secretion. BUN/Creatinine Ratio 23(H) 9 - 20 04/27/2025 5:30 AM EDT [facility] Calcium 9.4 8.6 - 10.4 mg/dL 04/27/2025 5:30 AM EDT [facility] Blood BLOOD SPECIMEN / Unknown 04/27/2025 5:30 AM EDT 04/27/2025 5:51 AM EDT us Marilee GARZA CHEMISTRY ORDERABLES Final Resul t [facility] [address] [phone] * XR KNEE RIGHT (1-2 VIEWS) (04/26/2025 3:46 PM EDT) Anatomical Region Laterality Modality Thigh, Knee, Leg Computed Radiog nnamdi 04/26/2025 5:08 PM EDT Impressions 04/26/2025 5:08 PM EDT Total knee arthropasty without acute hardware complication. Narrative 04/26/2025 5:08 PM EDT EXAMINATION: TWO XRAY VIEWS OF THE RIGHT KNEE 04/26/2025 3:46 pm COMPARISON: None. HISTORY: ORDERING SYSTEM PROVIDED HISTORY: s/p right TKA TECHNOLOGIST PROVIDED HISTORY: Of operative side while in recovery room. s/p right TKA FINDINGS: There is a total knee arthroplasty with cemented components. No acute fracture or dislocation. No acute hardware failure or loosening. Grossly normal alignment. Soft tissue gas noted Procedure Note Sathish Dykes MD - 04/26/2025 EXAMINATION: TWO XRAY VIEWS OF THE RIGHT KNEE 04/26/2025 3:46 pm COMPARISON: None. HISTORY: ORDERING SYSTEM PROVIDED HISTORY: s/p right TKA TECHNOLOGIST PROVIDED HISTORY: Of operative side while in recovery room. s/p right TKA FINDINGS: There is a total knee arthroplasty with cemented components. No acute fracture or dislocation. No acute hardware failure or loosening.Grossly normal alignment. Soft tissue gas noted IMPRESSION: Total knee arthropasty without acute hardware complication. Marilee GARZA [facility] DIAGNOSTIC IMAGING ORDERABLE S Final Result * Spinal Block (04/26/2025 1:16 PM EDT) Narrative Abiel Centeno APRN - CRNA - 04/26/2025 1:16 PM EDT Abiel Centeno APRN - CRNA 04/26/2025 1:44 PM Spinal Block Patient location during procedure: OR End time: 04/26/2025 1:30 PM Reason for block: primary anesthetic Staffing Performed: resident/FOOD PREPARATION WORKER Resident/FOOD PREPARATION WORKER: Abiel Centeno APRN - CRNA Performed by: Abiel Centeno APRN - CRNA Authorized by: Abiel Centeno APRN - CRNA Spinal Block Patient position: sitting Prep: ChloraPrep Patient monitoring: laboratory monitor, continuous pulse ox and frequent blood pressure checks Approach: midline Location: L3/L4 Guidance: Anatomy Provider prep: sterile gloves and mask Local infiltration: lidocaine Needle Needle type: Pencan Needle gauge: 25 G Needle length: 3.5 in Assessment Sensory level: T4 Swirl obtained: Yes CSF: clear Attempts: 2 Hemodynamics: stable Additional Notes ( 1.6 ml) of Bupivacaine HCL 0.75% with Dextrose 8.25% Given Preanesthetic Checklist Completed: patient identified, IV checked, site marked, risks and benefits discussed, surgical/procedural consents, equipment checked, pre-op evaluation, timeout performed, anesthesia consent given, oxygen available and monitors applied/VS acknowledged Abiel Foley CRNA ANESTHESIA ORDERABLES Fin al Result * HC PERIPHERAL BLOCK - FEMORAL SINGLE OR SAPHENOUS W/IMG GDN (04/26/2025 12:53 PM EDT) Narrative Abiel Centeno APRN - CRNA - 04/26/2025 12:53 PM EDT Abiel Centeno APRN - CRNA 04/26/2025 1:01 PM Peripheral Block Patient location during procedure: pre-op Reason for block: post-op pain management and at surgeon's request Start time: 04/26/2025 12:53 PM End time: 04/26/2025 12:58 PM Staffing Performed: resident/SAULO Resident/FOOD PREPARATION WORKER: Abiel Centeno APRN - CRNA Performed by: Abiel Centeno APRN - CRNA Authorized by: Abiel Centeno APRN - CRNA Preanesthetic Checklist Completed: patient identified, IV checked, site marked, risks and benefits discussed, surgical/procedural consents, equipment checked, pre-op evaluation, timeout performed, anesthesia consent given, oxygen available and monitors applied/VS acknowledged Peripheral Block Patient position: supine Prep: ChloraPrep Provider prep: sterile gloves and mask Patient monitoring: continuous pulse ox, laboratory monitor and IV access Block type: Saphenous and iPacks Laterality: right Injection technique: single-shot Guidance: ultrasound guided Local infiltration: decadron and ropivacaine Infiltration strength: 0.5 % Local infiltration: decadron and ropivacaine Dose: 15 mL Needle Needle type: Other Needle gauge: 21 G Needle localization: ultrasound guidance Needle length: 8 cmOther needle type: Pajunk Assessment Injection assessment: negative aspiration for heme, no paresthesia on injection, local visualized surrounding nerve on ultrasound, no intravascular symptoms and low pressure verified by pressure monitor Paresthesia pain: none Slow fractionated injection: yes Hemodynamics: stable Outcomes: patient tolerated procedure well and uncomplicated Additional Notes 0.5% Ropivacaine 15ml, PFNS 15ml, PF Decadron 10mg Abiel Foley CRNA ANESTHESIA ORDERABLES Fin al Result * XR CHEST (2 VW) (04/05/2025 10:26 AM EDT) Anatomical Region Laterality Modality Chest Computed Radiogr aphy Chest 04/13/2025 3:26 AM EDT Impressions 04/13/2025 3:27 AM EDT 1. No acute process. Narrative 04/13/2025 3:27 AM EDT EXAM: 2 VIEW(S) XRAY OF THE CHEST 04/05/2025 10:26:17 AM COMPARISON: None available. CLINICAL HISTORY: Pre op. ORDERING SYSTEM PROVIDED HISTORY: pre op; TECHNOLOGIST PROVIDED HISTORY: pre op. FINDINGS: LUNGS AND PLEURA: No focal pulmonary opacity. No pulmonary edema. No pleural effusion. No pneumothorax. HEART AND MEDIASTINUM: No acute abnormality of the cardiac and mediastinal silhouettes. BONES AND SOFT TISSUES: No acute osseous abnormality. Procedure Note Deangelo Pisano MD - 04/13/2025 EXAM: 2 VIEW(S) XRAY OF THE CHEST 04/05/2025 10:26:17 AM COMPARISON: None available. CLINICAL HISTORY: Pre op. ORDERING SYSTEM PROVIDED HISTORY: pre op; TECHNOLOGIST PROVIDED HISTORY: pre op. FINDINGS: LUNGS AND PLEURA: No focal pulmonary opacity. No pulmonary edema. No pleural effusion. Nopneumothorax. HEART AND MEDIASTINUM: No acute abnormality of the cardiac and mediastinal silhouettes. BONES AND SOFT TISSUES: No acute osseous abnormality. IMPRESSION: 1. No acute process. Abiel Beard MD IMG DIAGNOSTIC IMAGING ORDERABLE S Final Result * EKG 12 Lead (04/05/2025 10:00 AM EDT) Ventricular Rate 44 BPM [facility] Atrial Rate 44 BPM [facility] RAD[facility]OLOG[facility] P-R Interval 144 ms [facility] RADIOLOGY QRS Duration 116 ms [facility] RADIOLOG[facility] Q-T Interval 450 ms [facility] RAD[facility] QTc Calculation (Bazett) 384 ms [facility] RADIOLOGY P Albers 88 degrees [facility] RADIOLOGY R Albers 21 degrees [facility] RADIOLOGY T Albers 38 degrees [facility] RADIOLOGY 04/05/2025 10:0 0 AM EDT Narrative [facility] RADIOLOG[facility] - 04/06/2025 12:01 AM EDT Marked sinus bradycardia Abnormal ECG When compared with ECG of 12-Feb-2005 23:26, Vent. rate has decreased by 40 bpm QRS duration has increased QT has shortened Confirmed by To Nagel ([id number]) on 04/06/2025 12:01:35 AM Procedure Note To Nagel MD - 04/06/2025 Marked sinus bradycardia Abnormal ECG When compared with ECG of 12-Feb-2005 23:26, Vent. rate has decreased by 40 bpm QRS duration has increased QT has shortened Confirmed by To Nagel ([id number]) on 04/06/2025 12:01:35 AM Abiel Beard MD ECG ORDERABLES Final Result [facility] * Urinalysis with Reflex to Culture (04/05/2025 9:51 AM EDT) Color, UA Yellow Yellow 04/05/2025 9:51 AM [facility] Turbidity UA Clear Clear 04/05/2025 9:51 AM [facility] Glucose, Ur NEGATIVE NEGATIVE mg/dL 04/05/2025 9:51 AM [facility] Bilirubin, Urine NEGATIVE NEGATIVE 04/05/2025 9:51 AM [facility] Ketones, Urine NEGATIVE NEGATIVE mg/dL 04/05/2025 9:51 AM [facility] Specific [place], UA 1.010 1.010 - 1.020 04/05/2025 9:51 AM [facility] Urine Hgb NEGATIVE NEGATIVE 04/05/2025 9:51 AM [facility] pH, Urine 6.0 5.0 - 9.0 04/05/2025 9:51 AM [facility] Protein, UA NEGATIVE NEGATIVE mg/dL 04/05/2025 9:51 AM [facility] Urobilinogen, Urine Normal 0.0 - 1.0 EU/dL 04/05/2025 9:51 AM [facility] Nitrite, Urine NEGATIVE NEGATIVE 04/05/2025 9:51 AM [facility] Leukocyte Esterase, Urine NEGATIVE NEGATIVE 04/05/2025 9:51 AM [facility] Urine 04/05/2025 9:51 AM EDT 04/05/2025 9:52 AM EDT us Abiel Beard MD URINE ORDERABLES Final Result Performing Organization Address [facility]/ZIP Co de Phone Number [facility] [address] [phone] * (ABNORMAL) Microscopic Urinalysis (04/05/2025 9:51 AM EDT) WBC, UA 0 TO 2 0 - 5 /HPF 04/05/2025 9:51 AM EDT [facility] RBC, UA None 0 - 2 /HPF 04/05/2025 9:51 AM EDT [facility] Casts UA 2 TO 5 HYALINE /LPF 04/05/2025 9:51 AM EDT [facility] Epithelial Cells, UA 2 TO 5 0 - 25 /HPF 04/05/2025 9:51 AM EDT [facility] Bacteria, UA TRACE(A) None 04/05/2025 9:51 AM EDT [facility] Mucus, UA TRACE(A) None 04/05/2025 9:51 AM EDT [facility] 04/05/2025 9:51 AM EDT 04/05/2025 9:52 AM EDT us Abiel Beard MD URINE ORDERABLES Final Result Performing Organization Address [facility] Co de Phone Number [facility] [address] [place] [address] * MRSA DNA Probe, Nasal (04/05/2025 9:51 AM EDT) Pathologist [facility] Specimen Description .NASAL SWAB 04/05/2025 9:51 AM EDT [facility] MRSA, DNA, Nasal NEGATIVE NEGATIVE 04/05/20 9:51 AM EDT [facility] Comment: NEGATIVE: MRSA DNA not detected by nucleic acid amplification. Results should be used as an adjunct to nosocomial control efforts to identify patients needing enhanced precautions. The test is not intended to identify patients with staphylococcal infections. Results should not be used to guide or monitor treatment for MRSA infections. Nasal 04/05/2025 9:51 AM EDT 04/05/2025 9:52 AM EDT us Abiel Beard MD MICROBIOLOGY - GENERAL ORDERABLE S Final Result [facility] [address] [phone] [phone] * TYPE AND SCREEN (04/05/2025 9:51 AM EDT) [facility] Blood Bank Sample Expiration 04/08/2025,2 359 04/05/2025 9:51 AM EDT [facility] Arm Band Number [id number] 04/05/2025 9:51 AM EDT [facility] ABO/Rh O POSITIVE 04/05/2025 9:51 AM EDT [facility] Antibody Screen NEGATIVE 04/05/2025 9:51 AM EDT [facility] Blood BLOOD SPECIMEN / Unknown 04/05/2025 9:51 AM EDT 04/05/2025 9:52 AM EDT us Abiel Beard MD BLOOD BANK TEST ORDERABLES Final Result Performing Organization Address City/[facility]/ZIP Co de Phone Number [facility] [address] [place] [address] * (ABNORMAL) CBC with Auto Differential (04/05/2025 9:50 AM EDT) [facility] WBC 9.8 3.5 - 11.3 k/uL 04/05/2025 9:50 AM EDT [facility] RBC 3.91(L) 3.95 - 5.11 m/uL 04/05/2025 9:50 AM EDT [facility] Hemoglobin 12.0 11.9 - 15.1 g/dL 04/05/2025 9:50 AM EDT [facility] Hematocrit 35.5(L) 36.3 - 47.1 % 04/05/2025 9:50 AM [facility] MCV 90.8 82.6 - 102.9 fL 04/05/2025 9:50 AM [facility] MCH 30.7 25.2 - 33.5 pg 04/05/2025 9:50 AM [facility] MCHC 33.8 28.4 - 34.8 g/dL 04/05/2025 9:50 AM [facility] RDW 11.7(L) 11.8 - 14.4 % 04/05/2025 9:50 AM [facility] Platelets 272 138 - 453 k/uL 04/05/2025 9:50 AM [facility] MPV 10.0 8.1 - 13.5 fL 04/05/2025 9:50 AM [facility] NRBC Automated 0.0 0.0 per 100 WBC 04/05/2025 9:50 AM [facility] Neutrophils % 62 36 - 65 % 04/05/2025 9:50 AM [facility] Lymphocytes % 27 24 - 43 % 04/05/2025 9:50 AM [facility] Monocytes % 7 3 - 12 % 04/05/2025 9:50 AM [facility] Eosinophils % 2 1 - 4 % 04/05/2025 9:50 AM [facility] Basophils % 1 0 - 2 % 04/05/2025 9:50 AM [facility] Immature Granulocytes % 1(H) 0 % 04/05/2025 9:50 AM [facility] Neutrophils Absolute 6.09 1.50 - 8.10 k/uL 04/05/2025 9:50 AM [facility] Lymphocytes Absolute 2.66 1.10 - 3.70 k/uL 04/05/2025 9:50 AM [facility] Monocytes Absolute 0.69 0.10 - 1.20 k/uL 04/05/2025 9:50 AM [facility] Eosinophils Absolute 0.16 0.00 - 0.44 k/uL 04/05/2025 9:50 AM EDT [facility] Basophils Absolute 0.10 0.00 - 0.20 k/uL 04/05/2025 9:50 AM EDT [facility] Immature Granulocytes Absolute 0.07 0.00 - 0.30 k/uL 04/05/2025 9:50 AM EDT [facility] Blood BLOOD SPECIMEN / Unknown 04/05/2025 9:50 AM EDT 04/05/2025 9:51 AM EDT Abiel Beard MD HEMATOLOGY ORDERABLES Final Resu lt [facility] [address] [place] [address] * APTT (04/05/2025 9:50 AM EDT) APTT 33.2 26.8 - 34.8 sec 04/05/2025 9:50 AM EDT [facility] Comment: IV Heparin Therapy Range: 62.0-94.0 Blood BLOOD SPECIMEN / Unknown 04/05/2025 9:50 AM EDT 04/05/2025 9:51 AM EDT us Abiel Beard MD HEMATOLOGY ORDERABLES Final Resu lt Performing Organization Address City/[facility]/ZIP Co de Phone Number [facility] [address] [place] [address] * Protime-INR (04/05/2025 9:50 AM EDT) Protime 13.3 11.7 - 14.1 sec 04/05/2025 9:50 AM EDT [facility] INR 1.0 04/05/2025 9:50 AM EDT [facility] Comment: Therapeutic Range: Moderate Anticoagulant Intensity: INR = 2.0-3.0 High Anticoagulant Intensity: INR = 2.5-3.5 Blood BLOOD SPECIMEN / Unknown 04/05/2025 9:50 AM EDT 04/05/2025 9:51 AM EDT us Abiel Beard MD HEMATOLOGY ORDERABLES Final Resu lt [facility] [address] [phone] * (ABNORMAL) Comprehensive Metabolic Panel (04/05/2025 9:50 AM EDT) Sodium 138 136 - 145 mmol/L 04/05/2025 9:50 AM T [facility] Potassium 4.4 3.7 - 5.3 mmol/L 04/05/2025 9:50 AM [facility] Chloride 105 98 - 107 mmol/L 04/05/2025 9:50 AM [facility] CO2 23 20 - 31 mmol/L 04/05/2025 9:50 AM [facility] Anion Gap 10 9 - 16 mmol/L 04/05/2025 9:50 AM [facility] Glucose 95 74 - 99 mg/dL 04/05/2025 9:50 AM [facility] BUN 26(H) 8 - 23 mg/dL 04/05/2025 9:50 AM [facility] Creatinine 1.1(H) 0.50 - 0.90 mg/dL 04/05/2025 9:50 AM [facility] Est, Glom Filt Rate 58(L) >60 mL/min/1.7 3m2 04/05/2025 9:50 AM [facility] Comment: These results are not intended for use in patients <18 years of age. eGFR results are calculated without a race factor using the 2020 CKD-EPI equation. Careful clinical correlation is recommended, particularly when comparing to results calculated using previous equations. The CKD-EPI equation is less accurate in patients with extremes of muscle mass, extra-renal metabolism of creatine, excessive creatine ingestion, or following therapy that affects renal tubular secretion. BUN/Creatinine Ratio 24(H) 9 - 20 04/05/2025 9:50 AM EDT [facility] Calcium 9.7 8.6 - 10.4 mg/dL 04/05/2025 9:50 AM T [facility] Total Protein 6.6 6.6 - 8.7 g/dL 04/05/2025 9:50 AM [facility] Albumin 4.1 3.5 - 5.2 g/dL 04/05/2025 9:50 AM T [facility] Albumin/Globulin Ratio 1.6 1.0 - 2.5 04/05/2025 9:50 AM T [facility] Total Bilirubin 0.4 0.00 - 1.20 mg/dL 04/05/2025 9:50 AM [facility] Alkaline Phosphatase 116(H) 35 - 104 U/L 04/05/2025 9:50 AM [facility] ALT 24 10 - 35 U/L 04/05/2025 9:50 AM [facility] AST 47(H) 10 - 35 U/L 04/05/2025 9:50 AM [facility] Blood BLOOD SPECIMEN / Unknown 04/05/2025 9:50 AM EDT 04/05/2025 9:51 AM EDT Abiel Beard MD CHEMISTRY ORDERABLES Final Resul t [facility] [address] [phone] from Last 3 Months Insurance [facility] [address] BCBS Advance Directives * Full Code (Latest Code Status on File) Date Activated Date Inactivated Comments 04/26/2025 11:20 AM 04/27/2025 2:33 PM Care Teams Host Coordinator Relationship Specialty Start Date End Date Omid Mendez MD [address] [place] [address] PCP - General Family Medicine 04/20/25
--- OUTSIDE RECORDS SUMMARY | 2025-06-26 08:01 | XMS_ITS | Clinical Summary ---
Author Organization [facility] Address [address] [place] [address] Care Team Providers Care Design Technology Professor Name Role Phone Unavailable Primary Care Provider Unavailabl e Social History Tobacco Use Types Packs/Day Years Used Date Smoking Tobacco: Never Assessed Comments Unknown Sex and Gender Information Value Date Recorded Sex Assigned at Not on file Legal Sex Female 4:26 PM EST Gender Identity Not on file Sexual Orientation Not on file Plan of Treatment Health Maintenance Due Date Last Done Comments DEXA SCAN DISCUSSION 1960 HEPATITIS C VIRUS SCREENING 1960 TETANUS 1960 TDAP (ADULT) 02/02/1979 CERVICAL CANCER SCREENING DISCUSSION 02/02/1981 LIPID SCREENING 2000 MAMMOGRAM SCREENING DISCUSSION 2000 COLORECTAL CANCER SCREENING DISCUSSION 02/02/2005 PNEUMOCOCCAL VACCINE SERIES (1 of 1 - PCV) 02/02/2010 ZOSTER (SHINGLES) VACCINE (1 of 2) 02/02/2010 COVID-19 VACCINE (2023-2 5 season) 2025 INFLUENZA VACCINE (#1) 2025 RSV VACCINE (1 - 1-dose 75+ series) 02/02/2035 HEP B VACCINE Aged Out No longer wojciech brizuela based on patient's age to complete this topic
--- OUTSIDE RECORDS SUMMARY | 2025-06-26 08:01 | XMS_ITS | Patient Health Record ---
Author Organization [facility] Address [address] [place] [address] Care Team Providers Care Survey Technologist Name Role Phone TyroneOmid fung Primary Care Provider UnavailAbiel Milton Unavailable [phone] To Orozco Unavailable [phone] Marilee Escamilla Unavailable [phone] Allergies No Known Allergies Results Component Value Reference Range Notes APTT Reviewed date:04/09/2025 07:36:22 AM Interpretation: Performing Lab: Notes/Report: [facility] [address] [place] [address] [address] [place], [place] [id number] Rug Receiving Clerk: Diallo Sparks MD PTT 33.2 26.8-34.8 sec IV Heparin Therapy Range: 62.0-94.0 Performing Lab: see note [facility] [address] [place] [address] [place] [address] PT Reviewed date:04/09/2025 07:36:23 AM Interpretation: Performing Lab: Notes/Report: [facility] [address] [place] [id number] Rug Receiving Clerk: Diallo Sparks MD Prothrombin Time 13.3 11.7-14.1 sec INR 1.0 Therapeutic Range: Moderate Anticoagulant Intensity: INR = 2.0-3.0 High Anticoagulant Intensity: INR = 2.5-3.5 Performing Lab: see note [facility] [address] [place] [id number] UA w Reflex Culture Reviewed date:04/09/2025 07:36:03 AM Interpretation: Performing Lab: Notes/Report: [address] [place] [id number] Rug Receiving Clerk: Diallo Sparks MD Color Yellow YEL Clarity, Urine Clear CLEAR Glucose,Semi-qnt,Ur NEGATIVE NEG mg/dL Bilirubin, SemiQt,Ur NEGATIVE NEG Ketones, Urine NEGATIVE NEG mg/dL Spec. [place],Ur 1.010 1.010-1.020 Blood, Urine NEGATIVE NEG PH,Ur 6.0 5.0-9.0 Protein, Semi-qnt,Ur NEGATIVE NEG mg/dL Urobilinogen,Ur Normal 0.0-1.0 EU/dL Nitrite,Ur NEGATIVE NEG Leukocyte Esterase NEGATIVE NEG Performing Lab: see note [address] [place] [id number] Urinalysis Micro Reviewed date:04/09/2025 07:35:52 AM Interpretation: Performing Lab: Notes/Report: [address] [place] [id number] Rug Receiving Clerk: Diallo Sparks MD Urine WBC's 0 TO 2 0-5 /HPF Urine RBC's None 0-2 /HPF Casts 2 TO 5 HYALINE Epithelial cells 2 TO 5 0-25 /HPF Bacteria TRACE NONE Mucus Strands TRACE NONE Performing Lab: see note [address] [place] [id number] Comp Metabolic Prof Reviewed date:04/09/2025 07:36:20 AM Interpretation: Performing Lab: Notes/Report: [address] [place] [id number] Rug Receiving Clerk: iDallo Sparks MD NA (Sodium) 138 136-145 mmol/L K (Potassium) 4.4 3.7-5.3 mmol/L Chloride 105 98-107 mmol/L CO2 23 20-31 mmol/L Anion Gap 10 9-16 mmol/L Glucose 95 74-99 mg/dL BUN (Urea N) 26 8-23 mg/dL Creatinine 1.1 0.50-0.90 mg/dL eGFR 58 >60 mL/min/1.73m2 These results are not intended for use [...] following therapy that affects renal tubular secretion. BUN/CRE Ratio 24 9-20 Calcium 9.7 8.6-10.4 mg/dL Protein, Total 6.6 6.6-8.7 g/dL Albumin 4.1 3.5-5.2 g/dL Albumin/Glob Ratio 1.6 1.0-2.5 Bilirubin, Total 0.4 0.00-1.20 mg/dL Alkaline Phos 116 35-104 U/L ALT 24 10-35 U/L AST 47 10-35 U/L Performing Lab: see note [facility] [address] [place] [address] Type Screen Reviewed date:04/09/2025 07:35:50 AM Interpretation: Performing Lab: Notes/Report: [facility] [address] [place], [place] [phone] Rug Receiving Clerk: Diallo Sparks MD Type + Screen Sample Expiration 04/08/2025,8935 Type + Screen Arm Band Number [id number] Type + Screen ABO/Rh(D) O POSITIVE Type + Screen Antibody Screen NEGATIVE Surgery Scheduling Reviewed date:04/27/2025 02:29:33 PM Interpretation: Performing Lab: Notes/Report: Primary Insurance Company: [employer] Surgeon/Assist: Abiel Beard MD/Octavio Surgery Location: [facility] Surgery Date & Time: April 26, 2025 Procedure: Right Total Knee Arthroplasty CPT 90772 Special Equipment: Bart Persona Diagnosis: Right Knee Pain/OA Admission Type: 23 hr stay Anesthesia Type/CPNB: Regional/Spinal Bed 23 hr Latex Allergy no Lab Location: [facility] APPT NEEDED Director Franchise Sales: Eliza Cardona Physician: Dr. Mendez (PCP) Assist Julia/Richie CBC with Diff Reviewed date:04/09/2025 07:36:26 AM Interpretation: Performing Lab: Notes/Report: [facility] [address] [place] [address] Rug Receiving Clerk: Diallo Sparks MD WBC Count 9.8 3.5-11.3 k/uL RBC Count 3.91 3.95-5.11 m/uL Hemoglobin 12.0 11.9-15.1 g/dL Hematocrit 35.5 36.3-47.1 % MCV 90.8 82.6-102.9 fL MCH 30.7 25.2-33.5 pg MCHC 33.8 28.4-34.8 g/dL RDW 11.7 11.8-14.4 % Platelet Count 272 138-453 k/uL MPV 10.0 8.1-13.5 fL NRBC Automated 0.0 0.0 per 100 WBC Neutrophil (Seg) 62 36-65 % Lymphocyte 27 24-43 % Monocyte 7 3-12 % Eosinophil 2 1-4 % Basophil 1 0-2 % Immature Granulocyte 1 0 % Abs.Neutrophil (Seg) 6.09 1.50-8.10 k/uL Abs. Lymph 2.66 1.10-3.70 k/uL Abs. Monocyte 0.69 0.10-1.20 k/uL Abs. Eosinophil 0.16 0.00-0.44 k/uL Abs. Basophil 0.10 0.00-0.20 k/uL Abs.Imm.Granulocyte 0.07 0.00-0.30 k/uL Performing Lab: see note [address] [place] [id number] MRSA, DNA, Nasal Reviewed date:04/09/2025 07:35:48 AM Interpretation: Performing Lab: Notes/Report: [employer] [address] [place] [address] [id number] Rug Receiving Clerk: Chirag Cruz MD [address] [place] [address] Rug Receiving Clerk: Diallo Sparks MD Specimen Description .NASAL SWAB MRSA, DNA, Nasal NEGATIVE NEG NEGATIVE: MRSA DNA not detected by nucleic acid amplification. Results should be used as an adjunct to nosocomial control efforts to identify patients needing enhanced precautions. The test is not intended to identify patients with staphylococcal infections. Results should not be used to guide or monitor treatment for MRSA infections. Performing Lab: see note [address] [place] [address] [place] [id number] [facility] [address] XR CHEST (2 VW) Reviewed date:04/17/2025 07:06:10 AM Interpretation: Performing Lab: Notes/Report: EXAM: Performed at: [address] [place] [id number] XR KNEE RIGHT (1-2 VIEWS) Reviewed date:04/27/2025 07:26:38 AM Interpretation: Performing Lab: Notes/Report: EXAMINATION: Performed at: [address] [place] [id number] Basic Metabolic Prof Reviewed date:04/27/2025 07:26:38 AM Interpretation: Performing Lab: Notes/Report: [address] [place], [place] [phone] Rug Receiving Clerk: Diallo Sparks MD NA (Sodium) 135 136-145 mmol/L K (Potassium) 4.2 3.7-5.3 mmol/L Chloride 106 98-107 mmol/L CO2 20 20-31 mmol/L Anion Gap 9 9-16 mmol/L Glucose 123 74-99 mg/dL BUN (Urea N) 23 8-23 mg/dL Creatinine 1.0 0.50-0.90 mg/dL eGFR 62 >60 mL/min/1.73m2 These results are not intended for use [...] following therapy that affects renal tubular secretion. BUN/CRE Ratio 23 9-20 Calcium 9.4 8.6-10.4 mg/dL Performing Lab: see note [address] [place] [address] Hgb Hct Reviewed date:04/27/2025 07:26:38 AM Interpretation: Performing Lab: Notes/Report: [facility] [address] [place] [address] Rug Receiving Clerk: Diallo Sparks MD Hemoglobin 10.8 11.9-15.1 g/dL Hematocrit 31.6 36.3-47.1 % Performing Lab: see note [facility] [address] [place] [address] Reason For Referral Reason NO AUTH REQ...............................04/26/25..............................ANTHEM Right Total Knee Arthroplasty @ [facility] Diagnos is 1 Primary osteoarthritis of right knee (M1 7.11) Referra l [facility] Referri ng Provide r First Name Abiel Referjose de jesus broussard Provide r Last Name Chirag broussard Provide r Special [facility] Orthopedic Surgery Referre d [facility]-23 HR OBS Referre d Address [address] [facility] [place],[address], Procedu re 1 Arthroplasty Knee Total Med/Lat Compartm ents ([address]) General Notes Eliza Mckinnon 03/27/2025 11:36:07 AM >Ivan Kayla 03/27/2025 11:53:29 AM > ANTHEM ACTIVE AND EFFECTIVE 01/09/25 PER [employer]. NO AUTHORIZATION REQUIRED PER [employer], TRANSACTION ID # [id number]. SCANNED INTO CHART.Ino Kelly 03/27/2025 12:16:41 PM > Referra mccoy Priorit y Routine Medications Medication SIG (Take, Route, Frequency, Duration) Notes Start Date End Date Status cloNIDine Active furosemide Active amLODIPine Active irbesartan Active indomethacin Active metoprolol Active QUEtiapine Active aspirin Active citalopram Active Social History Tobacco Use: Social History Observation Description Date Details (start date - stop date) Never Smoker NA - NA AUDIT-C (Standard) Question Answer Notes Did you have a drink containing alcohol in the p ast year? No Points 0 Interpretation Negative Tobacco Control (Standard) Question Answer Notes Tobacco use: Nonsmoker Problems Problem Type SNOMED Code ICD Code Onset Dates Problem Status W/U Status Risk Notes Problem [id number] Aftercare following joint replacement surgery (Z47.1) Active confirmed Problem [id number] Presence of righ t artificial knee joint (Z96.651) Active confirmed Problem Osteoarthritis of knee (560883463) Primary osteoarthritis of right knee (M17.11) Active confirmed Vital Signs Height 62 in 05/14/2025 Weight 205 lbs 05/14/2025 BMI 37.49 05/14/2025 Encounters Encounter Location Date Provider Diagnosis [facility] [address] [place] [address] 05/14/2025 Marilee Escamilla Aftercare following joint replacement surgery Z47.1 and Presence of right artificial knee joint Z96.651 [facility] [address] [place] [address] 06/25/2025 Abiel Beard Presence of right artificial knee joint Z96.651 and Aftercare following joint replacement surgery Z47.1 [email or web address] [address] [place] [address] 03/21/2025 To Orozco Primary osteoarthrit is of right knee M17.11 [facility] [place] [address] 03/26/2025 Abiel Beard Primary osteoarthrit is of right knee M17.11 ; Right knee pain M25.561 and Encounter for pre-operative respiratory clearance Z01.811 [facility] [[email or web address]] [address] [place] [address] 04/23/2025 Abiel Beard Right knee pain M25. 561 ; Primary osteoarthritis of right knee M17.11 and Encounter for pre-operative respiratory clearance Z01.[address] [place] [address] 04/26/2025 Abiel Beard Primary osteoarthrit is of right knee M17.11 Assessments Encounter Date Diagnosis (ICD Code) Assessment Notes Treatment Notes Treatment Clinical Notes Section Notes 03/21/2025 Primary osteoarthritis of right knee (ICD-10 - M17.11) 03/26/2025 Right knee pain (ICD-10 - M25.561) Right knee pain Right knee osteoarthritis 03/26/2025 Primary osteoarthritis of right knee (ICD-10 - M17.11) Right knee pain Right knee osteoarthritis 04/26/2025 Primary osteoarthritis of right knee (ICD-10 - M17.11) 05/14/2025 Aftercare following joint replacement surgery (ICD-10 - Z47.1) S/p right TKA 04/26/2025 05/14/2025 Presence of right artificial knee joint (ICD-10 - Z96.651) S/p right TKA 04/26/2025 04/23/2025 Right knee pain (ICD-10 - M25.561) Right knee pain Right knee osteoarthritis 06/25/2025 Presence of right artificial knee joint (ICD-10 - Z96.651) Status post right total knee arthroplasty 04/26/2025 04/23/2025 Primary osteoarthritis of right knee (ICD-10 - M17.11) Right knee pain Right knee osteoarthritis 06/25/2025 Aftercare following joint replacement surgery (ICD-10 - Z47.1) Status post right total knee arthroplasty 04/26/2025 03/26/2025 Encounter for pre-operative respiratory clearance (ICD-10 - Z01.811) Right knee pain Right knee osteoarthritis 04/23/2025 Encounter for pre-operative respiratory clearance (ICD-10 - Z01.811) Right knee pain Right knee osteoarthritis 05/14/2025 Other Discussed treatment options with patient. [...] in the meantime. S/p right TKA 04/26/2025 06/25/2025 Other Discussed treatment options with patient. Overall patient is doing well following her total knee arthroplasty. She will continue ice and anti-inflammator y as needed for pain. Activity modification as needed for pain. Activity as tolerated. She was given a note for return to work 07/16/2025 without restrictions. Continue her home exercises. All questions and concerns were addressed. Patient was in agreement to treatment plan. Will plan to see patient back in 4 months for repeat clinical and radiographic evaluation. Status post right total knee arthroplasty 04/26/2025 03/21/2025 Other For her right knee osteoarthritis that is failed extensive conservative treatment I have recommended she see Dr. Beard for discussion of total knee arthroplasty. She will follow-up with me on an as-needed basis. Import medication 03/26/2025 Other Discussed treatment options with patient. Patient does have evidence of end-stage osteoarthritis of her right knee. Radiographs demonstrate complete loss of right knee joint space. Pain is affecting her ADLs and quality of life. At this time given her recent injection she would benefit from continued nonsurgical management. She was given a handout for home exercises today. Ice and anti-inflammator y as needed for pain. Activity modification as needed for pain. Activity as tolerated. We did discuss that she would need to wait at least 3 months between prior injections and surgery. She will continue to use her cane as needed for pain. She was given a note for off work until the end of April. All questions and concerns were addressed. Patient was in agreement with the treatment plan. Will plan to see the patient back in approximately 6 weeks for repeat clinical evaluation. No radiographs required. If she has persistent pain we could consider total knee arthroplasty at that time. Right knee pain Right knee osteoarthritis 04/23/2025 Other Discussed nonoperative and operative interventions with patient. Patient continues to have significant right knee pain despite nonoperative interventions including ice, anti-inflammator ies, activity modification, home exercise program, injections, and cane. Pain is affecting her ADLs and quality of life. Radiographs demonstrate end-stage osteoarthritis of the right knee. Discussions had with patient regarding right total knee arthroplasty to assist with pain relief. Discussed procedure, risk, benefits, and alternatives include but not limited to bleeding, infection, neurovascular injury, hardware failure, fracture, stiffness, VTE, continued pain, need for additional surgery, and risk of anesthesia. Patient understood the risks and elected to proceed with surgery. Continue ice and anti-inflammator y as needed for pain. Activity modification as needed for pain. Activity as tolerated. All questions and concerns were addressed. Patient was in agreement with the treatment plan. This note will serve as clinical documentation for today's visit as well as H&P purposes. Right knee pain Right knee osteoarthritis Plan Of Treatment Pending Test Test Name Order Date SCC- KNEE 4 VIEW RIGHT [id number] 03/21/2025 [facility] [place] CBC WITH DIFF, CM P, PT/PTT INR, UA WITH REFLEX, TYPE and SCREEN BLOOD TYPE, TOTAL JOINT CLINIC PT/OT EVALUATION, EKG,CHEST XR, MRSA BILATERAL NARES 03/26/2025 RSS: KNEE POST OP RIGHT 3V AP,[place], [place] [address] 05/14/2025 RSS: KNEE POST OP RIGHT 3V AP,[place], [place] [address] 06/25/2025 RSS- PT- s/p total knee 2-3 x per week f or 6 weeks 03/26/2025 Next Appt Details Provider Name:Abiel Beard, 10/29/2025 08:50:00 AM, [address] [facility] , [address], [place], [address], Insurance Providers Payer Name Payer Address Payer Phone Subscriber Number Group Number Insured Name Patient Relationship to Insured Coverage Start Date Coverage End Date [address] [place] [phone] [id number] NEGRO STEWART Self - patient is the insured Medical (General) History Medical History History ICD Code High Blood Pressure Anxiety Surgical History Surgery Date(Month/Year) Right total knee replacement 04/26/2025
--- OUTSIDE RECORDS SUMMARY | 2025-06-26 08:01 | XMS_ITS | Encounter Summary ---
Author Organization [facility] Address [address], [address] [place] [address] Care Team Providers Care Human Resources Officer Name Role Phone Omid Mendez MD Primary Care Provider [phone] Reason for Visit * Reason Comments Med Change Request Encounter Details Date Type Department Care Team (Late st Contact Info) Description 05/19/2025 [facility] [address] [place] [address] Marilee Escamilla PA [facility] [place] [address] Med Change Request Social History Tobacco Use Types Packs/Day Years Used Date Smoking Tobacco: Never Smokeless Tobacco: Never Alcohol Use Standard Drinks/Week Comments Never 0 (1 standard drink = 0.6 oz pur e alcohol) [facility] Utilities Answer Date Recorded In the past 12 months has [employer], gas, oil, or water [employer] threatened to shut off services in your [...] medical appointments or from getting medications? No 07/1 04/2025 In the past 12 months, has l [...] any time in the past [address] [facility], were you homeless or living in a [place] health care facility (including now)? No 04/26/2025 Food Insecurity Answer [...] on file Sexual Orientation Not on file documented as of this encounter Plan of Treatment Not on file documented as of this encounter Visit Diagnoses Not on filedocumented in this encounter Care Teams Human Resources Officer Relationship Specialty Start Date End Date Omid Mendez MD [address] [place] [address] PCP - General Family Medicine 04/20/25 documented as of this encounter
[2025-06-26 08:22] LABS: Hematocrit 33.7 % (36.0-48.0); Hemoglobin 11.6 g/dL (12.0-16.0); Immature Granulocytes Abs Auto 0.03 10^3/uL (0.00-0.03); Immature Granulocytes Pct Auto 0.5 % (0.0-0.5); Lymphocytes Absolute Auto 1.9 10^3/uL (1.2-3.8); Mean Corpuscular HGB Conc 34.4 g/dL (29.9-35.2); Mean Corpuscular Hemoglobin 30.7 pg (26.7-34.0); Mean Corpuscular Volume 89.2 fL (81.0-99.0); Platelet Count 249 10^3/uL (150-450); Red Blood Count 3.78 10^6/uL (4.20-5.40); White Blood Count 6.0 10^3/uL (4.0-11.0)
[2025-06-26 09:09] LABS: Alanine Aminotransferase 24 U/L (14-59); Albumin Globulin Ratio 1.1; Albumin Level 3.8 g/dL (3.4-5.0); Alkaline Phosphatase 111 U/L (46-116); Anion Gap 12.9; Aspartate Amino Transferase 40 U/L (15-37); Blood Urea Nitrogen 35.0 mg/dL (7.0-18.0); Calcium 9.9 mg/dL (8.5-10.1); Carbon Dioxide 27.2 mmol/L (21.0-32.0); Chloride 103 mmol/L (98-107); Cholesterol 203 mg/dL (<=200); Estimated GFR (African America 51 (>=60 mL/min/1.73m^2); Estimated GFR (Non-African Ame 42 (>=60 mL/min/1.73m^2); Free T3 2.24 pg/mL (2.18-3.98); Globulin 3.4 g/dL; Glucose 144 mg/dL (74-106); HDL Cholesterol 43 mg/dL (40-60); Potassium 5.1 mmol/L (3.5-5.1); Sodium 138 mmol/L (136-145); Thyroid Stimulating Hormone 0.890 uIU/mL (0.358-3.740); Total Protein 7.2 g/dL (6.4-8.2); Triglycerides 122 mg/dL (<=150); Uric Acid 7.4 mg/dL (2.6-6.0); VLDL CHOLESTEROL 24.4 mg/dL
[2025-06-27 14:11] LABS: Antinuclear Antibodies, IFA Negative (.)
== END 2025-06-26 07:59 | disposition home or self-care (01) ==
LOC: LAB 07:58
PROVIDERS: PCP Family Medicine; Visit Provider Family Medicine
DX: Z00.00 Encounter for general adult medical examination without abnormal findings (principal); M17.9 Osteoarthritis of knee, unspecified; I10 Essential (primary) hypertension; R60.9 Edema, unspecified; E78.5 Hyperlipidemia, unspecified; Z79.899 Other long term (current) drug therapy
CPT/HCPCS: 36415; 80053; 80061; 83036; 84436; 84443; 84481; 84550; 85025; 86038; 86060; 86140; 86431